=== PATIENT | female | born 1980 | race Caucasian/White ===

== ENCOUNTER 2020-11-17 18:25 | Emergency (ER) | payer OTHER ==
[~2020-11-17] VITALS: Ht 162.6 cm; Wt 93.9 kg
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
[2020-11-17 18:25] VITALS: BP 134/79
[~2020-11-17 18:25] MED LIST: ERYTHROMYCIN E3.5 G3 OPHTHALMIC
[2020-11-17] MEDS ORDERED: NORCO5 PO (19:26)
[2020-11-17] MEDS ORDERED: MOBIC15 MG PO (19:26)
[2020-11-17] MEDS ORDERED: CYCLOBENZAPRINE5 MG PO (19:26)
== END 2020-11-17 19:33 | disposition home or self-care (01) ==
LOC: ER 18:25
DX: S39.012A Strain of muscle, fascia and tendon of lower back, initial encounter (principal); Z79.899 Other long term (current) drug therapy; Z88.0 Allergy status to penicillin; V43.52XA Car driver injured in collision with other type car in traffic accident, initial encounter; Y93.89 Activity, other specified; Y92.89 Other specified places as the place of occurrence of the external cause; Y99.8 Other external cause status

== ENCOUNTER 2021-01-03 11:32 | Emergency (ER) | payer OTHER ==
[~2021-01-03] VITALS: Ht 162.6 cm; Wt 88.5 kg
[~2021-01-03 11:32] MED LIST changes: +CYCLOBENZAPRINE5 MG PO; +MOBIC15 MG PO; +NORCO5 PO
[2021-01-03] MEDS ORDERED: ZESTRIL10 MG PO (12:10)
[2021-01-03 12:55] VITALS: BP 130/65
[2021-01-03] MEDS ORDERED: DIAZEPAM 5 MG5 M1 PO ×2 (12:55→16:54)
== END 2021-01-03 12:55 | disposition home or self-care (01) ==
LOC: ER 11:32
DX: M25.511 Pain in right shoulder (principal); Z88.0 Allergy status to penicillin; V29.40XA Motorcycle driver injured in collision with unspecified motor vehicles in traffic accident, initial encounter; Y93.89 Activity, other specified; Y92.89 Other specified places as the place of occurrence of the external cause; Y99.8 Other external cause status